=== PATIENT | female | born 1995 | race Caucasian/White ===

== ENCOUNTER 2016-06-24 16:15 | Emergency (ER) | payer OTHER ==
[2016-06-24] MEDS ORDERED: SYNTHROID100 MC1 PO (16:20)
[2016-06-24] MEDS ORDERED: BIRTH CONTROL PILL (16:20)
== END 2016-06-24 17:03 ==
LOC: EDMED 16:15
DX: S29.012A Strain of muscle and tendon of back wall of thorax, initial encounter (principal); E03.9 Hypothyroidism, unspecified; Z79.890 Hormone replacement therapy; V49.50XA Passenger injured in collision with unspecified motor vehicles in traffic accident, initial encounter; Y92.410 Unspecified street and highway as the place of occurrence of the external cause